=== PATIENT | male | born 1965 ===

== ENCOUNTER 2020-09-24 10:56 | Outpatient (CLI) | payer OTHER | END 2020-09-24 11:18 | disposition home or self-care (01) | LOC: SONOGRAMA 10:56 | PROVIDERS: ATTEND Physical Medicine & Rehabilitation Hospice and Palliative Medicine | DX: M79.672 Pain in left foot (principal); M77.02 Medial epicondylitis, left elbow; M72.2 Plantar fascial fibromatosis ==